=== PATIENT | male | born 1960 | race Caucasian/White ===

== ENCOUNTER 2017-06-23 10:21 | Emergency (ER) | payer OTHER ==
[~2017-06-23] VITALS: Ht 182.9 cm; Wt 75.0 kg
[~2017-06-23 10:21] MED LIST: BENA25MI PO; CEPH500 PO
[2017-06-23 10:22] VITALS: BP 153/83; PULSE 90; RESP 20; TEMP 98.5; O2SAT 100
[2017-06-23] MEDS ORDERED: IOHEXOL 350 MG/ML 10 ML VIAL (for RAD DIAG) IVCONTRAST ONE (10:22)
[2017-06-23] MEDS ORDERED: MELO7.5T27 PO (10:57)
[2017-06-23] MEDS ORDERED: BENA25CA4 PO (10:57)
--- NOTE | 2017-06-23 11:32 | PD ---
HPI Chief Complaint: Pain: Acute or Chronic Time Seen by Provider: 10:55 Travel History International Travel<30 days: No Contact w/Intl Traveler<30days: No Traveled to known affect area: No History of Present Illness HPI Patient is a 57-year-old male presents to the emergency department for evaluation of right groin pain, for the past few hours, he states it radiates down to his groin, no associated dysuria flank pain nausea vomiting diarrhea constipation. 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 He is a cigarette smoker. He states his symptoms are moderate, right groin, radiation to testicles, context as above per [facility] Past Medical History Arthritis: No Asthma: Yes Blood Disorders: No Heart Rhythm Problems: No Cancer: No Cardiovascular Problems: Yes High Cholesterol: No Chest Pain: Yes Congestive Heart Failure: No COPD: Yes Cerebrovascular Accident: No Diminished Hearing: No Endocrine: No Gastrointestinal Disorders: Yes GERD: Yes Genitourinary: No Headaches: No Hepatitis: No Hiatal Hernia: No Immune Disorder: No Musculoskeletal: Yes (7 PINS IN WRIST THAT WERE REMOVED) Neurologic: No Psychiatric: No Reproductive: No Respiratory: Yes (COPD, ASTHMA) Immunizations Current: Yes Migraines: No Pancreatitis: Yes Seizures: No Sleep Apnea: No Ulcer: No ?: Not Past Surgical History Abdominal Surgery: No AICD: No Appendectomy: No Arteriovenous Shunt: No Cardiac Surgery: No Cholecystectomy: No Ear Surgery: No Endocrine Surgery: No Eye Surgery: No Genitourinary Surgery: No Gynecologic Surgery: No Insulin Pump: No Joint Replacement: No Oral Surgery: No Pacemaker: No Thoracic Surgery: No Tonsillectomy: Yes Other Surgery: Yes Social History Alcohol Use: Yes (DAILY) Tobacco Use: Yes (1.5ppd daily) Substance Use: No Allergies-Medications (Allergen,Severity, Reaction): Coded Allergies: No Known Allergies (Verified Adverse Reaction, Unknown, 06/23/17) Reported Meds & Prescriptions Reported Meds & Active Scripts Active Keflex (Cephalexin) 500 Mg Cap 500 Mg PO Q6H 7 Days Reported Meloxicam 7.5 Mg Tab 7.5 Mg PO DAILY Benadryl Allergy (Diphenhydramine HCl) 25 Mg Cap 50 Mg PO DAILY Review of Systems Except as stated in HPI: all other systems reviewed are Neg Physical Exam Narrative GENERAL: Well-developed, thin male in no obvious distress. SKIN: Focused skin assessment warm/dry. HEAD: Atraumatic. Normocephalic. EYES: Pupils equal and round. No scleral icterus. No injection or drainage. ENT: No nasal bleeding or discharge. Mucous membranes pink and moist. NECK: Trachea midline. No JVD. CARDIOVASCULAR: Regular rate and rhythm. No murmur appreciated. RESPIRATORY: No accessory muscle use. Clear to auscultation. Breath sounds equal bilaterally. GASTROINTESTINAL: Abdomen soft, non-tender, nondistended. Hepatic and splenic margins not palpable. MUSCULOSKELETAL: No obvious deformities. No clubbing. No cyanosis. No edema. GENITOURINARY: Grossly normal male scrotum and testes, no lesions seen on glans penis shaft or scrotum. There are bilateral inguinal hernias, easily reduced. NEUROLOGICAL: Awake and alert. No obvious cranial nerve deficits. Motor grossly within normal limits. Normal speech. PSYCHIATRIC: Appropriate mood and affect; insight and judgment normal. Data Data Last Documented VS Vital Signs Date Time Temp Pulse Resp B/P (MAP) Pulse Ox O2 Delivery O2 Flow Rate FiO2 06/23/17 16:12 06/23/17 14:29 87 17 98 Room Air 06/23/17 10:22 98.5 Orders Orders Us Testicles W Doppler (06/23/17 ) Ibuprofen (Motrin) (06/23/17 13:15) Urinalysis - C+S If Indicated (06/23/17 13:23) Basic Metabolic Panel (Bmp) (06/23/17 13:23) Complete Blood Count With Diff (06/23/17 13:23) Ckmb (Isoenzyme) Profile (06/23/17 13:23) Sodium Chlorid 0.9% 500 Ml Inj (Ns 500 M (06/23/17 13:30) Iv Access Insert/Monitor (06/23/17 13:24) Ct Abd/Pel W Iv Contrast(Rout) (06/23/17 ) Iohexol 350 Inj (Omnipaque 350 Inj) (06/23/17 10:22) Labs Laboratory Tests Test 06/23/17 13:25 White Blood Count 5.8 TH/MM3 Red Blood Count 4.17 MIL/MM3 Hemoglobin 14.7 GM/DL Hematocrit 43.0 % Mean Corpuscular Volume 103.1 FL Mean Corpuscular Hemoglobin 35.3 PG Mean Corpuscular Hemoglobin Concent 34.2 % Red Cell Distribution Width 13.5 % Platelet Count 247 TH/MM3 Mean Platelet Volume 6.9 FL Neutrophils (%) (Auto) 63.6 % Lymphocytes (%) (Auto) 20.9 % Monocytes (%) (Auto) 13.7 % Eosinophils (%) (Auto) 1.3 % Basophils (%) (Auto) 0.5 % Neutrophils # (Auto) 3.7 TH/MM3 Lymphocytes # (Auto) 1.2 TH/MM3 Monocytes # (Auto) 0.8 TH/MM3 Eosinophils # (Auto) 0.1 TH/MM3 Basophils # (Auto) 0.0 TH/MM3 CBC Comment DIFF FINAL Differential Comment Urine Color LIGHT-RED Urine Turbidity HAZY Urine pH 6.0 Urine Specific [place] 1.021 Urine Protein 30 mg/dL Urine Glucose (UA) NEG mg/dL Urine Ketones 40 mg/dL Urine Occult Blood LARGE Urine Nitrite NEG Urine Bilirubin NEG Urine Urobilinogen 2.0 MG/DL Urine Leukocyte Esterase TRACE Urine RBC /hpf Urine WBC 6 /hpf Urine Mucus MOD /lpf Microscopic Urinalysis Comment CULT NOT INDICATED Blood Urea Nitrogen 11 MG/DL Creatinine 0.65 MG/DL Random Glucose 86 MG/DL Calcium Level 8.7 MG/DL Sodium Level 140 MEQ/L Potassium Level 4.2 MEQ/L Chloride Level 103 MEQ/L Carbon Dioxide Level 28.9 MEQ/L Anion Gap 8 MEQ/L Estimat Glomerular Filtration Rate 127 ML/MIN Total Creatine Kinase 79 U/L MDM Medical Decision Making Medical Screen Exam Complete: Yes Emergency Medical Condition: Yes Differential Diagnosis Inguinal hernia, bladder mass, hematuria, kidney stone, torsion. Narrative Course Patient roomed in the emergency department, denied any urinary symptoms, an ultrasound of his testes was explored and negative, felt that his symptoms are likely due from bilateral inguinal hernias, the patient was then noted to have a urine specimen at the bedside which was very dark red in color likely hematuria but certainly could be from rhabdomyolysis, his workup was expanded for a CT abdomen as well as a urinalysis and basic blood work, urinalysis was significant for too numerous to count red blood cells otherwise benign, CT abdomen showed no obvious mass lesions. I discussed with him will place on empiric antibiotics at this time and need for follow-up with urologist, he then related a history that he had hematuria in the past year but never followed up with urologist because he did not have insurance at that time would like to follow up now. At this time he appears comfortable in no obvious distress. Is stable for discharge. Diagnosis Primary Impression: Right inguinal pain Additional Impression: Hematuria Referrals: Ra Duval MD,Paul Pickard DO Med/Other Pt SpecificInfo: Prescription(s) given Scripts Cephalexin (Keflex) 500 Mg Cap 500 MG PO Q6H for Infection for 7 Days, #28 CAP 0 Refills Prov: Ronny Cai MD 06/23/17 Disposition: 01 DISCHARGE HOME Condition: Stable Ronny Cai MD Jun 23, 2017 11:32
--- NOTE | 2017-06-23 12:47 | RADRPT ---
EXAM DATE/TIME: 06/23/2017 11:46 [facility] COMPARISON: No previous studies available for comparison. INDICATIONS : Testicle pain. MEDICAL HISTORY : Pancreatitis. Gastroesophageal reflux disease. Head trauma. Chest pain. COPD. Asthma. Dypsnea. Tobacc o use. SURGICAL HISTORY : Tonsillectomy. Left wrist surgery. ENCOUNTER: Initial ACUITY: 1 day PAIN SCORE: 3/10 LOCATION: Bilateral scrotum. MEASUREMENTS: RIGHT TESTICLE: 3.3 x 1.9 x 3.0cm LEFT TESTICLE: 2.8 x 2.2 x 3.6cm FINDINGS: RIGHT TESTICLE: Homogeneous echotexture without intra or extratesticular mass. Blood flow is symmetric and within no rmal limits. There is a small hydrocele. Epididymis is within normal limits and contains a 4 mm simp le cyst in the head LEFT TESTICLE: Homogeneous echotexture without intra or extratesticular mass. Blood flow is symmetric and within no rmal limits. There is a small hydrocele. Epididymis is within normal limits. SCROTUM: Within normal limits. Imaging of the left inguinal canal documents a hernia that it changes in size with Valsalva. CONCLUSION: 1. Symmetric blood flow is documented bilaterally without findings to indicate torsion at this time. There are small bilateral hydroceles. 2. There is a left inguinal canal hernia. Young Whitley MD on June 23, 2017 at 12:42 Board Certified Radiologist. This report was verified electronically.
[2017-06-23] MEDS ORDERED: IBUPROFEN 600 MG TAB PO ONE (13:15)
[2017-06-23] MEDS ORDERED: SODIUM CHLORID 0.9% 500 ML INJ 500 ML IV ONE (13:30)
[2017-06-23 13:42] LABS: AUTOMATED NEUTROPHIL # 3.7 TH/MM3 (1.8-7.7); BASOPHIL % 0.5 % (0.0-2.0); EOSINOPHIL # 0.1 TH/MM3 (0-0.4); EOSINOPHIL % 1.3 % (0.0-4.0); HEMOGLOBIN 14.7 GM/DL (13.0-17.0); LYMPH % 20.9 % (9.0-44.0); LYMPHOCYTE # 1.2 TH/MM3 (1.0-4.8); MEAN CELL VOLUME 103.1 FL (80.0-100.0); MEAN CORPUSCULAR HEMOGLOBIN 35.3 PG (27.0-34.0); MEAN CORPUSCULAR HGB CONC 34.2 % (32.0-36.0); MEAN PLATELET VOLUME 6.9 FL (7.0-11.0); MONO % 13.7 % (0.0-8.0); MONOCYTE # 0.8 TH/MM3 (0-0.9); NEUT % 63.6 % (16.0-70.0); PLATELET COUNT 247 TH/MM3 (150-450); RED BLOOD COUNT 4.17 MIL/MM3 (4.50-5.90); RED CELL DISTRIBUTION WIDTH 13.5 % (11.6-17.2); WHITE BLOOD COUNT 5.8 TH/MM3 (4.0-11.0)
[2017-06-23 13:46] LABS: BILIRUBIN, URINE NEG (NEG); BLOOD, URINE LARGE (NEG); GLUCOSE,URINE NEG (NEG); KETONE, URINE 40 mg/dL (NEG); MUCUS URINE MOD /lpf (OCC); NITRITE,URINE NEG (NEG); URINE LEUKOCYTE ESTERASE TRACE (NEG)
[2017-06-23 13:47] LABS: URINE COLOR LIGHT-RED (YELLW/STRAW)
[2017-06-23 13:58] LABS: BICARBONATE 28.9 MEQ/L (21.0-32.0); CALCIUM 8.7 MG/DL (8.5-10.1); CREATININE 0.65 MG/DL (0.60-1.30)
[2017-06-23 14:29] VITALS: BP 150/84; PULSE 87; RESP 17; O2SAT 98
--- NOTE | 2017-06-23 14:42 | RADRPT ---
EXAM DATE/TIME: 06/23/2017 14:21 [facility] COMPARISON: CT ABDOMEN & PELVIS W CONTRAST, March 18, 2011, 23:18. INDICATIONS : Right groin pain IV CONTRAST: 76 cc Omnipaque 350 (iohexol) IV ORAL CONTRAST: No oral contrast ingested. RADIATION DOSE: 6.64 CTDIvol (mGy) MEDICAL HISTORY : Cardiovascular disease. Chronic obstructive pulmonary disease. Pancreatitis. SURGICAL HISTORY : None. ENCOUNTER: Initial ACUITY: 1 day PAIN SCALE: 10/10 LOCATION: Right Abdomen TECHNIQUE: Volumetric scanning of the abdomen and pelvis was performed. Using automated exposure control and ad justment of the mA and/or kV according to patient size, radiation dose was kept as low as reasonably achievable to obtain optimal diagnostic quality images. DICOM format image data is available electro nically for review and comparison. FINDINGS: LOWER LUNGS: The visualized lower lungs are clear. LIVER: Homogeneous density without lesion. There is no dilation of the biliary tree. No calcified gallston es. SPLEEN: Normal size without lesion. PANCREAS: Within normal limits. KIDNEYS: Normal in size and shape. There is no mass, stone or hydronephrosis. ADRENAL GLANDS: Within normal limits. VASCULAR: There is no aortic aneurysm. BOWEL/MESENTERY: There are multiple loops of nondilated air-containing small bowel with several small air-fluid levels . Gas and stool noted segments of the colon. There are scattered small diverticuli. ABDOMINAL WALL: Within normal limits. RETROPERITONEUM: There is no lymphadenopathy. BLADDER: No wall thickening or mass. REPRODUCTIVE: Within normal limits. INGUINAL: There is no lymphadenopathy or hernia. MUSCULOSKELETAL: Within normal limits for patient age. CONCLUSION: 1. The right groin is unremarkable in appearance with no evidence of mass or hernia 2. Nonspecific, nonobstructive bowel gas pattern which may represent gastroenteritis and/or ileus. 3. Mild diverticulosis. Olvin Salguero MD on June 23, 2017 at 14:37 Board Certified Radiologist. This report was verified electronically.
[2017-06-23] MEDS ORDERED: CEPH-460 PO (15:49)
== END 2017-06-23 16:13 | disposition home or self-care (01) ==
LOC: NEPD 10:21
DX: R10.31 Right lower quadrant pain (principal); R31.9 Hematuria, unspecified; K40.20 Bilateral inguinal hernia, without obstruction or gangrene, not specified as recurrent; F17.210 Nicotine dependence, cigarettes, uncomplicated
CPT/HCPCS: 74177; 76870; 80048; 81001; 82550; 85025; 93975; 96360; 99285; J7040; Q9967